=== PATIENT | male | born 1955 | race African-American/Black ===

== ENCOUNTER 2016-11-06 16:31 | Emergency (ER) | payer OTHER ==
[~2016-11-06] VITALS: Ht 182.9 cm; Wt 65.9 kg
[2016-11-06] MEDS ORDERED: ONDANSETRON HCL 4 MG/2 ML VIAL IM ONE (17:00)
[2016-11-06] MEDS ORDERED: SODIUM CHLORIDE 0.9% 250 ML IRRIG SOLUTION BOTTLE IRRIG ONE (17:00)
[2016-11-06] MEDS ORDERED: MORPHINE SULFATE 4 MG/ML SYRINGE IM ONE (17:00)
[2016-11-06] MEDS ORDERED: CeFAZolin 1 GM/DEXTROSE 50 ML IV ONE ×2 (17:16→18:00)
[2016-11-06] MEDS ORDERED: ONDANSETRON HCL 4 MG/2 ML VIAL IVP ONE (18:00)
[2016-11-06] MEDS ORDERED: MORPHINE SULFATE 4 MG/ML SYRINGE IVP ONE (18:00)
[2016-11-06] MEDS ORDERED: LIDOCAINE HCL 1% 10 ML VIAL INJ ONE (19:15)
[2016-11-06 22:35] VITALS: BP 143/104
== END 2016-11-06 22:40 | disposition left against medical advice (07) ==
LOC: EMS 16:32
DX: S63.284A Dislocation of proximal interphalangeal joint of right ring finger, initial encounter (principal); S00.03XA Contusion of scalp, initial encounter; F17.210 Nicotine dependence, cigarettes, uncomplicated; F31.9 Bipolar disorder, unspecified; Y04.2XXA Assault by strike against or bumped into by another person, initial encounter; Y93.89 Activity, other specified; Y92.488 Other paved roadways as the place of occurrence of the external cause; Y99.8 Other external cause status
CPT/HCPCS: 26770; 70450; 72125; 73090; 73110; 73120; 73130; 96365; 96375; 99285; 99406; J0690; J2270; J2405; J3490; 96366

== ENCOUNTER 2017-08-15 01:41 | Inpatient (IN) | payer MEDICAID, OTHER ==
[~2017-08-15] VITALS: Ht 182.9 cm; Wt 82.6 kg
[2017-08-15 02:07] LABS: BASOPHILS % (AUTO) 1.1 % (0.0-2.0); EOSINOPHILS % (AUTO) 6.2 % (1.0-6.0); HEMOGLOBIN 14.4 g/dL (13.5-17.5); LYMPHOCYTES # (AUTO) 3.7 K/uL (1.0-4.8); LYMPHOCYTES % (AUTO) 45.2 % (22.0-44.0); MEAN CORPUSCULAR HEMOGLOBIN 30.6 pg (26.0-34.0); MEAN CORPUSCULAR HGB CONC 34.3 G/dL (31.0-37.0); MEAN CORPUSCULAR VOLUME 89 fL (80-100); MONOCYTES % (AUTO) 12.5 % (2.0-9.0); NEUTROPHILS # (AUTO) 2.9 K/uL (1.8-7.7); PLATELET COUNT (AUTO) 278 K/uL (150-450); RED CELL DISTRIBUTION WIDTH 14.8 % (11.5-14.5)
[2017-08-15 02:15] LABS: ANION GAP 7 mmol/L (8-16); CARBON DIOXIDE 29 mmol/L (22-29); CHLORIDE 104 mmol/L (98-107); CREATININE 0.99 mg/dL (0.60-1.30); GLOMERULAR FILTR. RATE CALC > 60 mL/min (>60); GLUCOSE,RANDOM 95 mg/dL (70-110); POTASSIUM 3.3 mmol/L (3.5-5.1); SODIUM SERUM 140 mmol/L (136-145); UREA NITROGEN, BLOOD 13 mg/dL (7-18)
[2017-08-15 02:20] LABS: ALANINE AMINOTRANSFERASE 40 U/L (12-78); ALBUMIN 3.8 g/dL (3.4-5.0); ALKALINE PHOSPHATASE 85 U/L (46-116); ASPARTATE AMINOTRANSFERASE 37 U/L (15-37); BILIRUBIN,TOTAL 0.9 mg/dL (0.1-1.0)
[2017-08-15] MEDS ORDERED: POTASSIUM CHLORIDE 20 MEQ ER TABLET PO ONE (03:00)
[2017-08-15] MEDS ORDERED: HALOPERIDOL 5 MG TABLET PO PRN (05:00)
[2017-08-15] MEDS ORDERED: LORazepam 2 MG TABLET PO PRN (05:00)
[2017-08-15] MEDS ORDERED: ZOLPIDEM TARTRATE 10 MG TABLET PO PRN (05:00)
[2017-08-15 05:29] VITALS: BP 111/78
[2017-08-15 08:23] VITALS: BP 120/70
[2017-08-15] MEDS ORDERED: CloNIDine HCL 0.1 MG TABLET PO PRN (09:00)
[2017-08-15] MEDS ORDERED: ALBUTEROL SULFATE HFA 90 MCG/PUFF 8 GM INHALER IH PRN (09:00)
[2017-08-15] MEDS ORDERED: LOPERAMIDE HCL 2 MG CAPSULE PO PRN (09:00)
[2017-08-15] MEDS ORDERED: BENZOCAINE/MENTHOL LOZENGE MM PRN (09:00)
[2017-08-15] MEDS ORDERED: IBUPROFEN 600 MG TABLET PO PRN (09:00)
[2017-08-15] MEDS ORDERED: MAG HYDROX/AL HYDROX/SIMETH ES 30 ML SUSPENSION UDCUP PO PRN (09:00)
[2017-08-15] MEDS ORDERED: BACITRACIN 28.4 GM OINTMENT TP PRN (09:00)
[2017-08-15] MEDS ORDERED: ONDANSETRON HCL 4 MG TABLET PO PRN (09:00)
[2017-08-15] MEDS ORDERED: MAGNESIUM HYDROXIDE SUSPENSION 30 ML UDCUP PO PRN (09:00)
[2017-08-15] MEDS ORDERED: PETROLATUM,WHITE 71 GM JELLY TP PRN (09:00)
[2017-08-15] MEDS ORDERED: ACETAMINOPHEN 325 MG TABLET PO PRN (09:00)
[2017-08-15 16:25] VITALS: BP 121/75
[2017-08-16 06:08] VITALS: BP 122/82
[2017-08-16 08:17] LABS: HEMOGLOBIN A1C 5.2 % (4.5-6.2)
[2017-08-16 08:30] LABS: FREE T4 (FREE THYROXINE) 1.04 ng/dL (0.76-1.46); POTASSIUM 3.8 mmol/L (3.5-5.1); THYROID STIMULATING HORMONE 0.55 uIU/mL (0.36-3.74)
[2017-08-16 08:33] VITALS: BP 118/72
[2017-08-16] MEDS: NICOTINE 21 MG/24 HOUR PATCH TD SCH (08:41)
[2017-08-16 16:16] VITALS: BP 100/62
[2017-08-17 05:25] VITALS: BP 100/80
[2017-08-17] MEDS: NICOTINE 21 MG/24 HOUR PATCH TD SCH (08:17)
[2017-08-17 08:37] VITALS: BP 120/82
[2017-08-17 16:23] VITALS: BP 111/69
[2017-08-18 06:48] VITALS: BP_SYST 115; BP_SYST 91; BP_DIAS 66; BP_DIAS 73
[2017-08-18] MEDS: NICOTINE 21 MG/24 HOUR PATCH TD SCH (08:31)
[2017-08-18 08:40] VITALS: BP 112/73
[2017-08-18 16:25] VITALS: BP 114/78
[2017-08-19 05:44] VITALS: BP 124/73
[2017-08-19] MEDS: NICOTINE 21 MG/24 HOUR PATCH TD SCH (08:31)
[2017-08-19 08:45] VITALS: BP 110/77
[2017-08-19 16:08] VITALS: BP 108/82
== END 2017-08-19 17:00 | disposition home or self-care (01) | DRG 751 ==
LOC: EMS 01:41 → B2S 02:58
PROVIDERS: ADMIT Psychiatry & Neurology Psychiatry; ATTEND Psychiatry & Neurology Psychiatry
DX: F23 Brief psychotic disorder (principal); J44.9 Chronic obstructive pulmonary disease, unspecified; F17.210 Nicotine dependence, cigarettes, uncomplicated; E87.6 Hypokalemia; F41.9 Anxiety disorder, unspecified; M19.90 Unspecified osteoarthritis, unspecified site; W14.XXXA Fall from tree, initial encounter; Y93.89 Activity, other specified; Y92.89 Other specified places as the place of occurrence of the external cause; Z79.899 Other long term (current) drug therapy; Z71.6 Tobacco abuse counseling
CPT/HCPCS: 83036; 84132; 84439; 84443; 99285; 99406; G0480